=== PATIENT | female | born 1945 ===

== ENCOUNTER 2022-07-07 18:34 | Inpatient (IN) | payer OTHER ==
[~2022-07-07] VITALS: Ht 167.6 cm; Wt 122.0 kg
[2022-07-07] MEDS ORDERED: ALBUTEROL SULFATE 5 MG/ML 20 ML NEB SOLN [BULK] NEB ONE (18:45)
[2022-07-07] MEDS ORDERED: IPRATROPIUM BROMIDE 0.5 MG/2.5 ML NEB SOLUTION NEB ONE (18:45)
[2022-07-07] MEDS ORDERED: NITROGLYCERIN 50 MG/D5% WATER 250 ML IV PRN (19:00)
[2022-07-07] MEDS ORDERED: FUROSEMIDE 40 MG/4 ML VIAL IVP ONE (19:00)
[2022-07-07 19:02] LABS: COVID AG,FIA SOURCE NASOPHARYNGEAL
[2022-07-07 19:19] LABS: BASOPHILS % (AUTO) 0.3 % (0.0-2.0); EOSINOPHILS % (AUTO) 0.2 % (1.0-6.0); HEMOGLOBIN 12.2 g/dL (12.0-16.0); LYMPHOCYTES # (AUTO) 2.6 K/uL (1.0-4.8); LYMPHOCYTES % (AUTO) 23.1 % (22.0-44.0); MEAN CORPUSCULAR HEMOGLOBIN 31.4 pg (26.0-34.0); MEAN CORPUSCULAR HGB CONC 32.9 G/dL (31.0-37.0); MEAN CORPUSCULAR VOLUME 96 fL (80-100); MONOCYTES # (AUTO) 1.3 K/uL (0.1-1.0); MONOCYTES % (AUTO) 11.3 % (2.0-9.0); NEUTROPHILS # (AUTO) 7.2 K/uL (1.8-7.7); NEUTROPHILS % (AUTO) 65.1 % (40.0-70.0); PLATELET COUNT (AUTO) 161 K/uL (150-450); RED BLOOD CELL COUNT(AUTO) 3.87 MIL/uL (4.00-5.20); RED CELL DISTRIBUTION WIDTH 16.7 % (11.5-14.5)
[2022-07-07 19:20] LABS: INFLUENZA TYPE A NEGATIVE FOR TYPE A (NEGATIVE); INFLUENZA TYPE B NEGATIVE FOR TYPE B (NEGATIVE)
[2022-07-07 19:29] LABS: CALCIUM, TOTAL 9.5 mg/dL (8.8-10.5); CREATININE 0.98 mg/dL (0.60-1.30); POTASSIUM 5.4 mmol/L (3.5-5.1)
[2022-07-07 19:33] LABS: INR 2.7 (0.9-1.1); PROTHROMBIN TIME 27.7 SEC (9.4-11.6)
[2022-07-07 19:53] LABS: ALBUMIN 3.3 g/dL (3.4-5.0); PHOSPHORUS 5.9 mg/dL (2.5-4.9); TOTAL PROTEIN, SERUM 7.2 g/dL (6.4-8.2)
[2022-07-07] MEDS ORDERED: ONDANSETRON HCL 4 MG/2 ML VIAL IVP PRN ×2 (20:45→22:00)
[2022-07-07] MEDS ORDERED: ACETAMINOPHEN 325 MG TABLET PO PRN (20:45)
[2022-07-07] MEDS ORDERED: 0.9% SODIUM CHLORIDE 10 ML SYRINGE IVP PRN (20:45)
[2022-07-07] MEDS ORDERED: AZITHROMYCIN 500 MG/NS 250 ML IV ONE (21:00)
[2022-07-07] MEDS ORDERED: CefTRIAXone 1 GM/DEXTROSE 50 ML IV ONE (21:00)
[2022-07-07] MEDS ORDERED: ACETAMINOPHEN 1000 MG/ISO-OSM 100 ML IV ONE (21:00)
[2022-07-07 21:03] LABS: APPEARANCE,URINE CLEAR (CLEAR); BILIRUBIN,URINE NEGATIVE (NEGATIVE); GLUCOSE, URINE (UA) TRACE mg/dL (NEGATIVE); KETONES,URINE NEGATIVE (NEGATIVE); LEUKOCYTE ESTERASE ,URINE NEGATIVE (NEGATIVE); NITRATE,URINE NEGATIVE (NEGATIVE); OCCULT BLOOD,URINE NEGATIVE (NEGATIVE); PROTEIN,URINE TRACE mg/dL (NEGATIVE); SPECIFIC GRAVITIY, URINE 1.009 (1.003-1.030); UROBILINOGEN,URINE <=1.0 mg/dL (<=1.0)
[2022-07-07] MEDS ORDERED: SODIUM CHLORIDE 0.9% 500 ML IV ONE (21:45)
[2022-07-07] MEDS ORDERED: HYDR-4723 PO (21:47)
[2022-07-07] MEDS ORDERED: DIGO125T2 PO (21:48)
[2022-07-07] MEDS ORDERED: SIMV-46 PO (21:48)
[2022-07-07] MEDS ORDERED: FURO-151 PO (21:49)
[2022-07-07] MEDS ORDERED: WARF5TAB40 PO (21:49)
[2022-07-07] MEDS ORDERED: METO50 PO (21:50)
[2022-07-07] MEDS ORDERED: BENZ100C68 PO (21:51)
[2022-07-07] MEDS ORDERED: XALA2.5OS OU (21:51)
[2022-07-07] MEDS ORDERED: BRIM15DR8 OU (21:53)
[2022-07-07] MEDS ORDERED: NIZO2SH TP (21:54)
[2022-07-07] MEDS ORDERED: NYST15PO3 TP (21:54)
[2022-07-07] MEDS ORDERED: SENN-295 PO (21:55)
[2022-07-07] MEDS ORDERED: GLUC1TAB61 PO (21:57)
[2022-07-07] MEDS ORDERED: MULT-1251 PO (21:57)
[2022-07-07] MEDS ORDERED: ACET-66 PO (21:57)
[2022-07-07] MEDS ORDERED: *CLINICAL-LEVOFLOXACIN IVPB DOSING CLINICAL ONE (22:00)
[2022-07-07] MEDS ORDERED: MAGNESIUM HYDROXIDE SUSPENSION 30 ML UDCUP PO PRN (22:00)
[2022-07-07] MEDS ORDERED: ZOLPIDEM TARTRATE 5 MG TABLET PO PRN (22:00)
[2022-07-07] MEDS ORDERED: BISACODYL 10 MG RECTAL RECTAL SUPPOSITORY PR PRN (22:00)
[2022-07-07] MEDS ORDERED: DEXTROSE 50%-WATER 25 GM/50 ML SYRINGE IVP PRN (22:15)
[2022-07-07] MEDS ORDERED: INSULIN LISPRO 100 UNITS/ML SQ PRN (22:15)
[2022-07-07] MEDS ORDERED: NOREPINEPHRINE 8 MG/D5%-WATER 250 ML IV PRN (22:15)
[2022-07-07 23:08] LABS: CHOL/HDL RATIO 3.3 (3.9-5.7)
[2022-07-07] MEDS: LEVOFLOXACIN 750 MG/D5% WATER 150 ML IV SCH (23:37)
[2022-07-08] MEDS ORDERED: HEPARIN SODIUM,PORCINE 5,000 UNITS/ML VIAL SQ SCH
[2022-07-08 06:19] LABS: BASOPHILS % (AUTO) 0.4 % (0.0-2.0); EOSINOPHILS % (AUTO) 0 % (1.0-6.0); HEMATOCRIT 31.7 % (36-46); HEMOGLOBIN 10.8 g/dL (12.0-16.0); LYMPHOCYTES # (AUTO) 3.7 K/uL (1.0-4.8); LYMPHOCYTES % (AUTO) 46.1 % (22.0-44.0); MEAN CORPUSCULAR HEMOGLOBIN 32.1 pg (26.0-34.0); MEAN CORPUSCULAR HGB CONC 34.1 G/dL (31.0-37.0); MEAN CORPUSCULAR VOLUME 94 fL (80-100); MONOCYTES # (AUTO) 1.2 K/uL (0.1-1.0); MONOCYTES % (AUTO) 15.2 % (2.0-9.0); NEUTROPHILS # (AUTO) 3.1 K/uL (1.8-7.7); NEUTROPHILS % (AUTO) 38.3 % (40.0-70.0); PLATELET COUNT (AUTO) 108 K/uL (150-450); RED BLOOD CELL COUNT(AUTO) 3.37 MIL/uL (4.00-5.20); RED CELL DISTRIBUTION WIDTH 16.3 % (11.5-14.5)
[2022-07-08 06:27] LABS: ALBUMIN 2.9 g/dL (3.4-5.0); BILIRUBIN,TOTAL 0.7 mg/dL (0.1-1.0); CALCIUM, TOTAL 8.9 mg/dL (8.8-10.5); CREATININE 1.03 mg/dL (0.60-1.30); POTASSIUM 4.9 mmol/L (3.5-5.1); TOTAL PROTEIN, SERUM 6.4 g/dL (6.4-8.2)
[2022-07-08] MEDS ORDERED: HEPARIN SODIUM,PORCINE 5,000 UNITS/ML VIAL IVP PRN ×2 (07:30)
[2022-07-08 08:21] LABS: INR 2.7 (0.9-1.1); PROTHROMBIN TIME 27.2 SEC (9.4-11.6)
[2022-07-08] MEDS: HEPARIN SODIUM 25000 UNITS/D5W 250 ML IV PRN (08:34)
[2022-07-08] MEDS: DIGOXIN 125 MCG TABLET PO SCH (08:44)
[2022-07-08] MEDS: FUROSEMIDE 40 MG/4 ML VIAL IVP SCH ×2 (08:44→21:09)
[2022-07-08] MEDS: METOPROLOL TARTRATE 50 MG TABLET PO SCH ×3 (08:44→21:12)
[2022-07-08] MEDS: DOCUSATE SODIUM 100 MG CAPSULE PO SCH ×2 (08:44→21:09)
[2022-07-08] MEDS: ATORVASTATIN CALCIUM 40 MG TABLET PO SCH (08:45)
[2022-07-08 09:21] LABS: GLUCOSE,POINT OF CARE 110 MG/DL (70-110)
[2022-07-08 12:00] VITALS: BP 125/72
[2022-07-08 16:00] VITALS: BP 159/92
[2022-07-08] MEDS: ACETAMINOPHEN 325 MG TABLET PO PRN ×2 (16:41→21:09)
[2022-07-08 19:01] LABS: GLUCOSE,POINT OF CARE 112 MG/DL (70-110)
[2022-07-08 19:01] LABS: GLUCOSE,POINT OF CARE 117 MG/DL (70-110)
[2022-07-08 20:00] VITALS: BP 136/89
[2022-07-08] MEDS: SIMVASTATIN 40 MG TABLET PO SCH (21:08)
[2022-07-09] VITALS: BP 118/60
[2022-07-09] MEDS: ACETAMINOPHEN 325 MG TABLET PO PRN ×4 (00:29→20:15)
[2022-07-09] MEDS: LEVOFLOXACIN 750 MG/D5% WATER 150 ML IV SCH ×2 (00:29→23:15)
[2022-07-09 00:36] LABS: GLUCOSE,POINT OF CARE 132 MG/DL (70-110)
[2022-07-09] MEDS ORDERED: SODIUM CHLORIDE 0.9% 250 ML IV ONE (01:58)
[2022-07-09 04:00] VITALS: BP 141/63
[2022-07-09 06:39] LABS: BASOPHILS % (AUTO) 0.5 % (0.0-2.0); EOSINOPHILS % (AUTO) 0.5 % (1.0-6.0); HEMATOCRIT 34.1 % (36-46); HEMOGLOBIN 11.5 g/dL (12.0-16.0); LYMPHOCYTES # (AUTO) 3.1 K/uL (1.0-4.8); LYMPHOCYTES % (AUTO) 54.7 % (22.0-44.0); MEAN CORPUSCULAR HEMOGLOBIN 31.9 pg (26.0-34.0); MEAN CORPUSCULAR HGB CONC 33.6 G/dL (31.0-37.0); MEAN CORPUSCULAR VOLUME 95 fL (80-100); MONOCYTES # (AUTO) 1.2 K/uL (0.1-1.0); MONOCYTES % (AUTO) 20.6 % (2.0-9.0); NEUTROPHILS # (AUTO) 1.3 K/uL (1.8-7.7); NEUTROPHILS % (AUTO) 23.7 % (40.0-70.0); PLATELET COUNT (AUTO) 97 K/uL (150-450); RED CELL DISTRIBUTION WIDTH 16.6 % (11.5-14.5)
[2022-07-09 06:49] LABS: CALCIUM, TOTAL 9.1 mg/dL (8.8-10.5); CREATININE 0.94 mg/dL (0.60-1.30); POTASSIUM 4.9 mmol/L (3.5-5.1)
[2022-07-09 08:00] VITALS: BP 101/59
[2022-07-09] MEDS: ATORVASTATIN CALCIUM 40 MG TABLET PO SCH (08:17)
[2022-07-09] MEDS: DOCUSATE SODIUM 100 MG CAPSULE PO SCH ×2 (08:17→20:15)
[2022-07-09] MEDS: DIGOXIN 125 MCG TABLET PO SCH (08:17)
[2022-07-09] MEDS: FUROSEMIDE 40 MG/4 ML VIAL IVP SCH ×2 (08:17→20:15)
[2022-07-09] MEDS: METOPROLOL TARTRATE 50 MG TABLET PO SCH ×4 (08:18→20:14)
[2022-07-09] MEDS: HEPARIN SODIUM 25000 UNITS/D5W 250 ML IV PRN (09:40)
[2022-07-09 09:51] LABS: GLUCOSE,POINT OF CARE 92 MG/DL (70-110)
[2022-07-09 12:00] VITALS: BP 140/106
[2022-07-09 13:55] LABS: ABG A-A DIFF O2 51.4 mmHg (10-20.0); ABG BASE EXCESS 3.9 mmol/L (-2.0-3.0); ABG CARBOXYHEMOGLOBIN 0.3 % (0.0-1.5); ABG HCO3 27.4 mmol/L (22.0-26.0); ABG METHEMOGLOBIN 0.3 % (0.0-1.5); ABG OXYGEN CONTENT 15.3 mL/dL (15.0-23.0); ABG OXYGEN SATURATION 95.7 % (95.0-98.0); ABG OXYHEMOGLOBIN 95.1 % (94.0-100.0); ABG PCO2 50 mmHg (35-45); ABG PH 7.382 (7.35-7.450); ABG TOTAL HEMOGLOBIN 11.4 G/dL (12.0-18.0); O2 DEVICE,BLOOD GAS CANNULA (ROOM AIR); PO2, ARTERIAL BG 88.2 mmHg (75.0-83.0); SITE, BLOOD GAS RT RADIAL; SOURCE, BLOOD GAS ARTERIAL; TEMPERATURE, FAHRENHEIT, BG 100.9 FAHREN (96.0-98.6)
[2022-07-09] MEDS ORDERED: BARIUM SULFATE 0.1% SUSPENSION 450 ML BOTTLE ONE (14:51)
[2022-07-09 15:46] LABS: INR 1.7 (0.9-1.1); PROTHROMBIN TIME 17.6 SEC (9.4-11.6)
[2022-07-09] MEDS ORDERED: SODIUM CHLORIDE 0.9% 100 ML ONE (15:50)
[2022-07-09] MEDS ORDERED: IOHEXOL 300 MG/ML 100 ML VIAL ONE (15:50)
[2022-07-09 16:00] VITALS: BP 125/64
[2022-07-09] MEDS ORDERED: VANCOMYCIN 1GM/WATER(PEG/NADA) 200 ML IV ONE (16:30)
[2022-07-09] MEDS: AMPICILLIN SODIUM/SULBACTAM NA 3 GM in SODIUM CHLORIDE 0.9% 100 ML IV SCH ×2 (17:53→23:16)
[2022-07-09 20:00] VITALS: BP 120/43
[2022-07-09] MEDS: SIMVASTATIN 40 MG TABLET PO SCH (20:14)
[2022-07-09 20:51] LABS: GLUCOSE,POINT OF CARE 87 MG/DL (70-110)
[2022-07-09 20:51] LABS: GLUCOSE,POINT OF CARE 84 MG/DL (70-110)
[2022-07-09 20:51] LABS: GLUCOSE,POINT OF CARE 103 MG/DL (70-110)
[2022-07-09] MEDS ORDERED: VANCOMYCIN HCL 500 MG in DEXTROSE 5%-WATER 100 ML IV ONE (22:00)
[2022-07-10] VITALS: BP 106/61
[2022-07-10 04:00] VITALS: BP 95/46
[2022-07-10 05:23] LABS: BASOPHILS % (AUTO) 0.3 % (0.0-2.0); EOSINOPHILS % (AUTO) 0.8 % (1.0-6.0); HEMATOCRIT 29.1 % (36-46); LYMPHOCYTES # (AUTO) 4.4 K/uL (1.0-4.8); LYMPHOCYTES % (AUTO) 71.1 % (22.0-44.0); MEAN CORPUSCULAR HEMOGLOBIN 32.3 pg (26.0-34.0); MEAN CORPUSCULAR HGB CONC 34.4 G/dL (31.0-37.0); MEAN CORPUSCULAR VOLUME 94 fL (80-100); MONOCYTES # (AUTO) 0.9 K/uL (0.1-1.0); MONOCYTES % (AUTO) 13.9 % (2.0-9.0); NEUTROPHILS # (AUTO) 0.9 K/uL (1.8-7.7); NEUTROPHILS % (AUTO) 13.9 % (40.0-70.0); PLATELET COUNT (AUTO) 91 K/uL (150-450); RED CELL DISTRIBUTION WIDTH 16.5 % (11.5-14.5)
[2022-07-10] MEDS: AMPICILLIN SODIUM/SULBACTAM NA 3 GM in SODIUM CHLORIDE 0.9% 100 ML IV SCH ×3 (05:23→17:32)
[2022-07-10 05:38] LABS: ALBUMIN 2.6 g/dL (3.4-5.0); BILIRUBIN,TOTAL 0.6 mg/dL (0.1-1.0); C-REACTIVE PROTEIN QUANT 3.05 mg/dL (0.00-0.30); CALCIUM, TOTAL 8.3 mg/dL (8.8-10.5); CREATININE 0.95 mg/dL (0.60-1.30); POTASSIUM 4.5 mmol/L (3.5-5.1); TOTAL PROTEIN, SERUM 5.9 g/dL (6.4-8.2)
[2022-07-10 08:00] VITALS: BP 118/47
[2022-07-10] MEDS: METOPROLOL TARTRATE 50 MG TABLET PO SCH ×3 (08:43→20:07)
[2022-07-10] MEDS: DIGOXIN 125 MCG TABLET PO SCH (08:43)
[2022-07-10] MEDS: DOCUSATE SODIUM 100 MG CAPSULE PO SCH ×2 (08:43→20:07)
[2022-07-10] MEDS: ATORVASTATIN CALCIUM 40 MG TABLET PO SCH (08:43)
[2022-07-10] MEDS: FUROSEMIDE 40 MG/4 ML VIAL IVP SCH ×2 (08:43→20:07)
[2022-07-10] MEDS: VANCOMYCIN 1GM/WATER(PEG/NADA) 200 ML IV SCH ×2 (08:44→20:07)
[2022-07-10 11:46] LABS: GLUCOSE,POINT OF CARE 107 MG/DL (70-110)
[2022-07-10 12:00] VITALS: BP 122/64
[2022-07-10] MEDS: ALBUTEROL SULFATE 2.5 MG/0.5 ML NEB SOLUTION NEB SCH ×3 (15:26→23:00)
[2022-07-10] MEDS: IPRATROPIUM BROMIDE 0.5 MG/2.5 ML NEB SOLUTION NEB SCH ×3 (15:26→23:00)
[2022-07-10 16:00] VITALS: BP 101/69
[2022-07-10 16:13] LABS: INR 1.5 (0.9-1.1); PROTHROMBIN TIME 15.4 SEC (9.4-11.6)
[2022-07-10 17:42] LABS: GLUCOSE,POINT OF CARE 88 MG/DL (70-110)
[2022-07-10 20:00] VITALS: BP 113/47
[2022-07-10] MEDS: SIMVASTATIN 40 MG TABLET PO SCH (20:07)
[2022-07-11] VITALS: BP 86/55
[2022-07-11] MEDS: LEVOFLOXACIN 750 MG/D5% WATER 150 ML IV SCH
[2022-07-11 00:01] LABS: GLUCOSE,POINT OF CARE 80 MG/DL (70-110)
[2022-07-11] MEDS: IPRATROPIUM BROMIDE 0.5 MG/2.5 ML NEB SOLUTION NEB SCH ×5 (03:00→19:00)
[2022-07-11] MEDS: ALBUTEROL SULFATE 2.5 MG/0.5 ML NEB SOLUTION NEB SCH ×5 (03:00→19:00)
[2022-07-11] MEDS: ACETAMINOPHEN 325 MG TABLET PO PRN ×2 (03:21→16:21)
[2022-07-11 04:00] VITALS: BP 98/45
[2022-07-11] MEDS: AMPICILLIN SODIUM/SULBACTAM NA 3 GM in SODIUM CHLORIDE 0.9% 100 ML IV SCH ×5 (05:38→20:02)
[2022-07-11 05:47] LABS: BASOPHILS % (AUTO) 0.4 % (0.0-2.0); EOSINOPHILS % (AUTO) 0.7 % (1.0-6.0); LYMPHOCYTES # (AUTO) 3.5 K/uL (1.0-4.8); LYMPHOCYTES % (AUTO) 63.9 % (22.0-44.0); MEAN CORPUSCULAR HEMOGLOBIN 32.1 pg (26.0-34.0); MEAN CORPUSCULAR HGB CONC 34.4 G/dL (31.0-37.0); MEAN CORPUSCULAR VOLUME 94 fL (80-100); MONOCYTES # (AUTO) 0.7 K/uL (0.1-1.0); MONOCYTES % (AUTO) 13.2 % (2.0-9.0); NEUTROPHILS # (AUTO) 1.2 K/uL (1.8-7.7); NEUTROPHILS % (AUTO) 21.8 % (40.0-70.0); PLATELET COUNT (AUTO) 90 K/uL (150-450); RED BLOOD CELL COUNT(AUTO) 3.11 MIL/uL (4.00-5.20); RED CELL DISTRIBUTION WIDTH 16.3 % (11.5-14.5)
[2022-07-11 06:00] LABS: ALBUMIN 2.6 g/dL (3.4-5.0); BILIRUBIN,TOTAL 0.6 mg/dL (0.1-1.0); C-REACTIVE PROTEIN QUANT 1.98 mg/dL (0.00-0.30); CALCIUM, TOTAL 8.2 mg/dL (8.8-10.5); CREATININE 1.07 mg/dL (0.60-1.30); POTASSIUM 4.6 mmol/L (3.5-5.1); VANCOMYCIN,RANDOM 19.9 mcg/mL (25.0-50.0)
[2022-07-11 06:14] LABS: INR 1.3 (0.9-1.1); PROTHROMBIN TIME 13.8 SEC (9.4-11.6)
[2022-07-11] MEDS: VANCOMYCIN 1GM/WATER(PEG/NADA) 200 ML IV SCH ×2 (08:06→21:08)
[2022-07-11] MEDS: DOCUSATE SODIUM 100 MG CAPSULE PO SCH ×2 (08:07→21:08)
[2022-07-11] MEDS: METOPROLOL TARTRATE 50 MG TABLET PO SCH ×3 (08:19→21:08)
[2022-07-11] MEDS: FUROSEMIDE 40 MG/4 ML VIAL IVP SCH ×2 (08:19→21:08)
[2022-07-11] MEDS: DIGOXIN 125 MCG TABLET PO SCH (08:19)
[2022-07-11] MEDS: ATORVASTATIN CALCIUM 40 MG TABLET PO SCH (08:19)
[2022-07-11] MEDS: HEPARIN SODIUM 25000 UNITS/D5W 250 ML IV PRN (09:57)
[2022-07-11] MEDS ORDERED: *CLINICAL-WARFARIN SODIUM DOSING CLINICAL ONE (11:00)
[2022-07-11] MEDS ORDERED: HEPARIN SODIUM,PORCINE 5,000 UNITS/ML VIAL IVP PRN ×2 (11:45)
[2022-07-11] MEDS ORDERED: HEPARIN SODIUM,PORCINE 5,000 UNITS/ML VIAL IVP ONE ×2 (11:45)
[2022-07-11] MEDS ORDERED: HEPARIN SODIUM 25000 UNITS/D5W 250 ML IV PRN (11:45)
[2022-07-11] MEDS ORDERED: MEBROFENIN TC99M/MCL ISOTOPE 1 EA INJ INJ ONE (14:05)
[2022-07-11] MEDS ORDERED: WARFARIN SODIUM 5 MG TABLET PO ONE (17:00)
[2022-07-11 17:44] VITALS: BP 124/74
[2022-07-11] MEDS ORDERED: AUD NEB (19:17)
[2022-07-11] MEDS ORDERED: AMPI3VIA20 IV (19:18)
[2022-07-11] MEDS ORDERED: DOCU-385 PO (19:19)
[2022-07-11] MEDS ORDERED: ATOR40TA28 PO (19:19)
[2022-07-11 19:21] VITALS: BP 110/67
[2022-07-11] MEDS ORDERED: FURO10VI34 IVP (19:21)
[2022-07-11] MEDS ORDERED: IPRNEB IH (19:21)
[2022-07-11] MEDS ORDERED: LEVO750P7 IV (19:23)
[2022-07-11] MEDS ORDERED: VANC125C6 IV (19:25)
[2022-07-11] MEDS ORDERED: BISA-151 PO (19:27)
[2022-07-11] MEDS ORDERED: D5050I IVP (19:29)
[2022-07-11] MEDS ORDERED: INSU100V SQ (19:31)
[2022-07-11] MEDS ORDERED: MAGN-169 PO (19:33)
[2022-07-11] MEDS ORDERED: ONDA-104 PO (19:34)
[2022-07-11 20:12] LABS: GLUCOSE,POINT OF CARE 81 MG/DL (70-110)
[2022-07-11] MEDS ORDERED: APIXABAN 5 MG TABLET PO SCH (21:00)
[2022-07-12] MEDS ORDERED: WARFARIN SODIUM 2 MG TABLET PO SCH (17:00)
[2022-07-13 18:06] LABS: LEGIONELLA PNEUMO AG URINE Negative (Negative); S PNEUMO SOURCE Urine; STREP PNEUMONIAE AG URINE Negative (Negative)
== END 2022-07-11 22:05 | disposition short-term general hospital (02) | DRG 871 ==
LOC: EMS 18:34 → ICU 07-08 10:39 → 5N 07-11 17:25
PROVIDERS: ADMIT Internal Medicine; ATTEND Internal Medicine
PROC: 5A09357 Assistance with Respiratory Ventilation, Less than 24 Consecutive Hours, Continuous Positive Airway Pressure (ICD-10-PCS; 2022-07-08)
PROC: 05HY33Z Insertion of Infusion Device into Upper Vein, Percutaneous Approach (ICD-10-PCS; principal; 2022-07-09)
PROC: 05HY33Z Insertion of Infusion Device into Upper Vein, Percutaneous Approach (ICD-10-PCS; 2022-07-09)
PROC: 5A09357 Assistance with Respiratory Ventilation, Less than 24 Consecutive Hours, Continuous Positive Airway Pressure (ICD-10-PCS; 2022-07-09)
PROC: 5A09357 Assistance with Respiratory Ventilation, Less than 24 Consecutive Hours, Continuous Positive Airway Pressure (ICD-10-PCS; 2022-07-10)
PROC: 5A09357 Assistance with Respiratory Ventilation, Less than 24 Consecutive Hours, Continuous Positive Airway Pressure (ICD-10-PCS; 2022-07-11)
DX: A41.89 Other specified sepsis (principal); G93.41 Metabolic encephalopathy; I21.4 Non-ST elevation (NSTEMI) myocardial infarction; J96.01 Acute respiratory failure with hypoxia; J96.02 Acute respiratory failure with hypercapnia; R65.21 Severe sepsis with septic shock; I48.20 Chronic atrial fibrillation, unspecified; I50.32 Chronic diastolic (congestive) heart failure; J98.11 Atelectasis; E78.5 Hyperlipidemia, unspecified; B95.8 Unspecified staphylococcus as the cause of diseases classified elsewhere; Z20.822 Contact with and (suspected) exposure to COVID-19; E11.65 Type 2 diabetes mellitus with hyperglycemia; J44.9 Chronic obstructive pulmonary disease, unspecified; D64.9 Anemia, unspecified; E66.01 Morbid (severe) obesity due to excess calories; E87.5 Hyperkalemia; I11.0 Hypertensive heart disease with heart failure; I27.21 Secondary pulmonary arterial hypertension; K80.20 Calculus of gallbladder without cholecystitis without obstruction; Z79.01 Long term (current) use of anticoagulants; Z84.1 Family history of disorders of kidney and ureter; Z88.5 Allergy status to narcotic agent; Z88.8 Allergy status to other drugs, medicaments and biological substances
CPT/HCPCS: 36245; 36569; 71045; 71250; 74177; 76705; 76937; 78226; 80048; 80053; 80061; 80202; 81003; 82550; 82805; 82962; 83605; 83735; 83880; 84100; 84145; 84484; 85025; 85610; 85730; 86140; 87040; 87077; 87081; 87086; 87205; 87449; 87804; 87899; 93005; 93306; 94640; 94644; 94660; 97163; 99291; A9537; G0378; J0131; J0295; J0456; J0696; J1644; J1940; J1956; J3370; J7040; J7050; J7060; Q9967; 36415-L1; 36415-TC; J7611; J7613; U0003